=== PATIENT | female | born 1970 | race Caucasian/White ===

== ENCOUNTER 2018-10-12 09:01 | Emergency (ER) | payer MEDICAID ==
[~2018-10-12] VITALS: Ht 165.1 cm; Wt 66.0 kg
[2018-10-12 10:27] LABS: CLARITY URINE CLEAR (CLEAR); COLOR URINE YELLOW (YELLOW); KETONES URINE NEGATIVE (NEGATIVE); LEUKOCYTE ESTERASE URINE 3+ (NEGATIVE); NITRITE URINE NEGATIVE (NEGATIVE); OCCULT BLOOD URINE NEGATIVE (NEGATIVE); PROTEIN URINE NEGATIVE (NEGATIVE); SPECIFIC GRAVITY URINE 1.016 (1.005-1.030); UROBILINOGEN URINE 0.2 E.U./dL (0.2-1.0)
[2018-10-12 13:45] VITALS: BP 125/66
== END 2018-10-12 13:56 | disposition home or self-care (01) ==
LOC: ER 09:01
DX: D25.9 Leiomyoma of uterus, unspecified (principal); N39.0 Urinary tract infection, site not specified; Z87.19 Personal history of other diseases of the digestive system; Z98.890 Other specified postprocedural states
CPT/HCPCS: 76830; 76856; 81025; 87077; 87186; 99284

== ENCOUNTER 2018-10-13 13:26 | Emergency (ER) | payer MEDICAID ==
[~2018-10-13] VITALS: Ht 162.6 cm; Wt 66.0 kg
[2018-10-13] MEDS ORDERED: SODIUM CHLORIDE 0.9% 1,000 ML IV SCH (14:49)
[2018-10-13 14:59] LABS: BASOPHILS % 0.3 % (0.0-2.0); EOSINOPHILS % 0.3 % (0.0-5.0); HEMATOCRIT. 34.6 % (36.0-48.0); HEMOGLOBIN. 11.5 g/dL (12.0-16.0); LYMPHOCYTES % 14.1 % (20.0-50.0); MEAN CORPUSCULAR HEMOGLOBIN 28.6 pg (28.0-32.0); MEAN CORPUSCULAR VOLUME 85.7 fL (81.0-99.0); MEAN PLATELET VOLUME 10.4 fl (7.4-10.4); MONOCYTES % 4.9 % (2.0-8.0); NEUTROPHILS % 80.4 % (40.0-76.0); PLATELET 219 x1000/uL (130-400); RED BLOOD CELL COUNT 4.03 mill/uL (4.2-5.4); RED CELL DISTRIBUTION WIDTH 14.3 % (11.6-14.6)
[2018-10-13] MEDS ORDERED: KETOROLAC 30MG/ML VIAL IV ONE (15:00)
[2018-10-13] MEDS ORDERED: ALBUTEROL (0.5%) 2.5MG/0.5ML NEB HHN ONE (15:00)
[2018-10-13] MEDS ORDERED: CEPHALEXIN 250MG CAPSULE PO ONE (15:00)
[2018-10-13] MEDS ORDERED: ONDANSETRON HCL 4MG/2ML INJ IV ONE (15:00)
[2018-10-13] MEDS ORDERED: DIPHENHYDRAMINE 50MG CAPSULE PO ONE (15:00)
[2018-10-13] MEDS ORDERED: FAMOTIDINE 20MG/2ML VIAL IV ONE (15:00)
[2018-10-13] MEDS ORDERED: PREDNISONE 20MG TABLET PO ONE (15:00)
[2018-10-13 15:02] LABS: CLARITY URINE CLOUDY (CLEAR); COLOR URINE YELLOW (YELLOW); KETONES URINE 2+ (NEGATIVE); LEUKOCYTE ESTERASE URINE 2+ (NEGATIVE); NITRITE URINE NEGATIVE (NEGATIVE); OCCULT BLOOD URINE NEGATIVE (NEGATIVE); PH URINE >=9.0 (4.5-8.0); PROTEIN URINE TRACE (NEGATIVE); SPECIFIC GRAVITY URINE 1.021 (1.005-1.030); UROBILINOGEN URINE 0.2 E.U./dL (0.2-1.0)
[2018-10-13 15:05] LABS: CHLORIDE 105 mEq/L (98-107)
[2018-10-13] MEDS ORDERED: ALBUTEROL (0.083%) 2.5MG/3ML NEB ONE (15:57)
[2018-10-13 19:04] VITALS: BP 134/83
== END 2018-10-13 19:35 | disposition home or self-care (01) ==
LOC: ER 13:26
DX: T78.40XA Allergy, unspecified, initial encounter (principal); X58.XXXA Exposure to other specified factors, initial encounter
CPT/HCPCS: 36415; 80053; 81003; 81025; 85025; 87077; 87086; 87186; 93005; 94640; 96361; 96374; 96375; 99284; J1885; J2405; J3490; J7512; J7611; Q0163; Z7610

== ENCOUNTER 2020-06-21 12:05 | Emergency (ER) | payer MEDICAID ==
[~2020-06-21] VITALS: Ht 165.1 cm; Wt 68.0 kg
[2020-06-21 12:13] VITALS: BP 139/76
[2020-06-21] MEDS ORDERED: BENZ5.1G TOP (12:30)
== END 2020-06-21 12:49 | disposition home or self-care (01) ==
LOC: ER 12:05
DX: K12.0 Recurrent oral aphthae (principal); Z88.2 Allergy status to sulfonamides; Z88.3 Allergy status to other anti-infective agents; Z98.890 Other specified postprocedural states
CPT/HCPCS: 99282

== ENCOUNTER 2022-06-26 10:34 | Inpatient (IN) | payer MEDICAID, OTHER ==
[~2022-06-26] VITALS: Ht 167.6 cm; Wt 71.7 kg
[~2022-06-26 10:34] MED LIST: BENZ5.1G TOP
[2022-06-26 11:33] LABS: CLARITY URINE CLOUDY (CLEAR); COLOR URINE YELLOW (YELLOW); KETONES URINE NEGATIVE (NEGATIVE); LEUKOCYTE ESTERASE URINE TRACE (NEGATIVE); NITRITE URINE NEGATIVE (NEGATIVE); OCCULT BLOOD URINE NEGATIVE (NEGATIVE); PH URINE 6.5 (4.5-8.0); PROTEIN URINE NEGATIVE (NEGATIVE); SPECIFIC GRAVITY URINE 1.006 (1.005-1.030); UROBILINOGEN URINE 0.2 E.U./dL (0.2-1.0)
[2022-06-26 11:51] LABS: CHLORIDE 108 mEq/L (98-107)
[2022-06-26 12:05] LABS: BASOPHILS % 0.5 % (0.0-2.0); EOSINOPHILS % 0.4 % (0.0-5.0); HEMATOCRIT. 35.1 % (36.0-48.0); HEMOGLOBIN. 11.7 g/dL (12.0-16.0); LYMPHOCYTES % 18.1 % (20.0-50.0); MEAN CORPUSCULAR HEMOGLOBIN 28.6 pg (28.0-32.0); MEAN CORPUSCULAR VOLUME 85.5 fL (81.0-99.0); MEAN PLATELET VOLUME 10.1 fl (7.4-10.4); MONOCYTES % 5.3 % (2.0-8.0); NEUTROPHILS % 75.7 % (40.0-76.0); PLATELET 232 x1000/uL (130-400); RED CELL DISTRIBUTION WIDTH 14.1 % (11.6-14.6)
[2022-06-26 12:06] LABS: PARTIAL THROMBOPLASTIN TIME 27.3 sec (23.4-31.0); PROTHROMBIN TIME 10.3 sec (9.6-11.0)
[2022-06-26 12:22] LABS: HCG SCREEN NEGATIVE
[2022-06-26] MEDS ORDERED: ASPIRIN 81MG TABLET PO ONE (13:15)
[2022-06-26] MEDS ORDERED: NITROGLYCERIN 0.4MG TABLET SL SL PRN (13:15)
[2022-06-26] MEDS ORDERED: CEFTRIAXONE 1GM PREMIX 50 ML IV ONE (15:30)
[2022-06-26] MEDS ORDERED: NALOXONE HCL 0.4MG/ML VIAL IV PRN (17:00)
[2022-06-26] MEDS ORDERED: CLONIDINE 0.1MG TABLET PO PRN (17:00)
[2022-06-26] MEDS ORDERED: ACETAMINOPHEN 325MG TABLET PO PRN (17:00)
[2022-06-26] MEDS ORDERED: DIPHENHYDRAMINE 50MG/ML VIAL IV PRN (17:00)
[2022-06-26] MEDS ORDERED: IPRATROPIUM/ALBUTEROL 0.5-3(2.5)MG/3ML NEB HHN PRN (17:00)
[2022-06-26] MEDS ORDERED: MORPHINE SULFATE 2 MG/ML CPJ (NOT FOR IM USE) IV PRN (17:00)
[2022-06-26] MEDS ORDERED: ONDANSETRON HCL 4MG/2ML INJ IV PRN (17:00)
[2022-06-26 17:15] VITALS: BP 137/77
[2022-06-26] MEDS ORDERED: GABA-532 PO (17:32)
[2022-06-26] MEDS: ENOXAPARIN 40MG/0.4ML SYR SUBCUT SCH (18:06)
[2022-06-26 20:17] VITALS: BP 145/76
[2022-06-26] MEDS: GABAPENTIN 300MG CAPSULE PO SCH (21:02)
[2022-06-27 00:20] VITALS: BP 117/68
[2022-06-27 04:13] VITALS: BP 111/51
[2022-06-27 08:16] VITALS: BP 107/67
[2022-06-27] MEDS ORDERED: NITROGLYCERIN SPRAY/4.9GM CAN TL ONE (11:45)
[2022-06-27] MEDS ORDERED: IOHEXOL-350 100 ML BOTTLE ONE (12:15)
[2022-06-27 12:34] VITALS: BP 130/80
[2022-06-27 15:55] VITALS: BP 126/81
[2022-06-27] MEDS: ENOXAPARIN 40MG/0.4ML SYR SUBCUT SCH (17:23)
[2022-06-27 20:00] VITALS: BP 125/75
[2022-06-27] MEDS: GABAPENTIN 300MG CAPSULE PO SCH (21:48)
[2022-06-28] VITALS: BP 118/60
[2022-06-28 04:00] VITALS: BP 112/54
[2022-06-28 06:53] LABS: CHLORIDE 109 mEq/L (98-107)
[2022-06-28 06:58] LABS: BASOPHILS % 0.6 % (0.0-2.0); EOSINOPHILS % 2.5 % (0.0-5.0); HEMATOCRIT. 31.7 % (36.0-48.0); HEMOGLOBIN. 10.8 g/dL (12.0-16.0); LYMPHOCYTES % 29.4 % (20.0-50.0); MEAN CORPUSCULAR VOLUME 85.1 fL (81.0-99.0); MEAN PLATELET VOLUME 10.1 fl (7.4-10.4); MONOCYTES % 9.2 % (2.0-8.0); NEUTROPHILS % 58.3 % (40.0-76.0); PLATELET 207 x1000/uL (130-400); RED BLOOD CELL COUNT 3.73 mill/uL (4.2-5.4)
[2022-06-28 07:04] LABS: HDL CHOLESTEROL 51 mg/dL (40-59); LDL CHOLESTEROL 95 mg/dL (5-100)
[2022-06-28 08:00] VITALS: BP 119/56
[2022-06-28 12:00] VITALS: BP 141/71
[2022-06-28 13:39] VITALS: BP 141/71
== END 2022-06-28 14:09 | disposition home or self-care (01) | DRG 203 ==
LOC: ER 11:41 → 3WST 15:21 → EDBEDREQTM 15:24 → EDBEDREQ 15:24 → ER 16:54
PROVIDERS: ADMIT Internal Medicine; ATTEND Internal Medicine
DX: M94.0 Chondrocostal junction syndrome [Tietze] (principal); I31.39 Other pericardial effusion (noninflammatory); I10 Essential (primary) hypertension; Z88.1 Allergy status to other antibiotic agents; Z88.2 Allergy status to sulfonamides; Z98.891 History of uterine scar from previous surgery
CPT/HCPCS: 36415; 71045; 75571; 80048; 80053; 80061; 81003; 83735; 84484; 84703; 85025; 93005; 93306; 93970; 99285; J0696; J1650; Q9967